=== PATIENT | female | born 1950 | race Two or more races ===

== ENCOUNTER → 2016-07-25 | Outpatient (CLI) | payer MEDICARE, OTHER ==
[~2016-07-25] MED LIST: AMITIZA8 MCG PO; CALCIUM NASAL SPRAY; CALCIUM PO; CENTRUM SILVER PO; CORAL CALCIUM1000 MG PO; DICYCLOMINE HCL20 MG PO; FIBER625 M1 PO; FISH OIL 1,001000 MG PO; MED FOR CHOLESTEROL; PRILOSEC PO; PRILOSEC20 MG PO; ROSUVASTATIN CA10 MG PO; SERTRALINE HCL50 MG PO; VAGIFEM10 MCG VAG; VITAMIN D3 5,01 EACH PO
== END | disposition home or self-care (01) ==
LOC: CSSDAY 13:54
DX: M85.80 Other specified disorders of bone density and structure, unspecified site (principal); Z79.899 Other long term (current) drug therapy
CPT/HCPCS: 36415; 82310; 96372; J0897

== ENCOUNTER → 2017-01-16 | Outpatient (CLI) | payer MEDICARE, OTHER ==
--- NOTE | ~2017-01-16 | NM86 ---
[facility] A Service of [facility] RADIOLOGY TEXT RESULTS PATIENT: IRIS WATT LOCATION: [facility] : 46 UNIT #: [id number] AGE: [address]: Tracie Pan MD SEX: F ORDER DR: [id number] [id number] O MR#: [id number] Acc #: [id number] NAME: IRIS WATT : 1950 SEX: F STUDY DATE/TIME: 01/16/2017 7:27 UNIT: [facility] ROOM: STUDY DESCRIPTION: NM Thyroid Img W Uptake Attending Physician: Tracie Pan M.D. Referring Physician: Tracie Pan M.D. Ordering Physician: Tracie Pan M.D. Primary Care Physician: Lulu Joe M.D. MEDICAL IMAGING REPORT This report is preliminary unless electronic signature is present EXAMINATION Nuclear medicine thyroid uptake and scan. DATE 01/16/2017 HISTORY Abnormal thyroid function tests. The patient states hoarse voice, difficulty speaking when lying flat, fatigue, insomnia, thinning hair, hot flashes and increased nervousness. COMPARISON None. FINDINGS Following ingestion of 161.1 mcCi I-123 in capsular form, delayed 24-hour pinhole images were obtained of the neck in the anterior, ALEGRE and CHASE projections. Of special note, the patient reported dizziness, nausea and vomiting 4-5 hours after swallowing the I-123 capsule. The right thyroid lobe is slightly larger than left. However, normal homogeneous radiopharmaceutical uptake is demonstrated. No dominant hot or cold nodules are identified within either thyroid lobe. The calculated I-123 24-hour uptake is 12.5% (normal at this institution being between 10-30%). IMPRESSION 1. The right thyroid lobe is slightly larger than left. No hot or cold nodules are seen. 2. 24-hour I-123 uptake is within normal range, 12.5%. [facility] A Service of [facility] RADIOLOGY TEXT RESULTS PATIENT: IRIS WATT LOCATION: [facility] #: [id number] : 46 UNIT #: [id number] AGE: [address]: Tracie Pan MD SEX: F ORDER DR: Dictated by... Sanaz Davies M.D. THIS IS AN ELECTRONICALLY VERIFIED REPORT Sanaz Davies M.D. at 01/17/2017 8:54 AM SHALA/leslie TD: 01/16/2017 19:02 JOB #: [id number] MEDICAL IMAGING REPORT Page 1 of 1 COPY
== END | disposition home or self-care (01) ==
LOC: CNUC 07:00
DX: R94.6 Abnormal results of thyroid function studies (principal); E04.9 Nontoxic goiter, unspecified
CPT/HCPCS: 78014; A9516